=== PATIENT | male | born 1970 | race American Indian/Alaskan Native ===

== ENCOUNTER 2016-09-28 03:41 | Inpatient (IN) | payer MEDICAID ==
[~2016-09-28] VITALS: Ht 180.3 cm; Wt 74.9 kg
[2016-09-28 05:00] LABS: INR 0.93 (0.9-1.15); Partial Thromboplastin Time 25.1 sec (22.64-33.71); Prothrombin Time 10.1 sec (9.37-12.3)
[2016-09-28 05:03] LABS: Amylase 45 U/L (25-115); Anion Gap 12 (5-15); Aspartate Aminotransferase 13 U/L (15-37); BUN/Creatinine Ratio 8.9; Blood Urea Nitrogen 8 mg/dL (7-18); Calcium 8.3 mg/dL (8.5-10.1); Carbon Dioxide 25 mmol/L (21-32); Chloride 106 mmol/L (98-107); GFR African American 117 mL/min; GFR Non-African American 97 mL/min; Glucose 145 mg/dL (74-106); Potassium 3.7 mmol/L (3.5-5.1); Sodium 143 mmol/L (136-145)
[2016-09-28 05:07] LABS: Basophils # (auto) 0 uL; Basophils % (auto) 0.6 % (0.0-2.0); CONDITION Y; DEFINITIVE SEE PRINTOUT; Eosinophils # (auto) 0.1 uL; Eosinophils % (auto) 1.8 % (0.0-7.0); Hematocrit 27.2 % (41.0-53.0); Hemoglobin 8.7 g/dL (13.5-17.5); Lymphocytes # (auto) 1.5 uL; Mean Corpuscular Hemoglobin 22.6 pg (28.0-32.0); Mean Corpuscular Volume 70.8 fL (80.0-100.0); Mean Platelet Volume 8.2 fL (7.4-10.4); Monocytes # (auto) 0.6 uL; Monocytes % (auto) 8.1 % (0.0-12.0); Neutrophils # (auto) 4.6 uL; Neutrophils % (auto) 67.5 % (37.0-80.0); Platelet Count (auto) 567 10^3/uL (140-450); Red Cell Distribution Width 19.1 % (11.6-16.0); White Blood Cell 6.8 10^3/uL (4.4-10.8)
[2016-09-28 05:08] LABS: Alkaline Phosphatase 75 U/L (45-117); Bilirubin, Total 0.2 mg/dL (0.2-1.0); Total Protein 6.5 g/dL (6.4-8.2)
[2016-09-28] MEDS ORDERED: SODIUM CHLORIDE 0.9% 500 ML IVB ONE (08:16)
[2016-09-28] MEDS ORDERED: PANTOPRAZOLE SODIUM 40 MG/10 ML VIAL IV STA (08:16)
[2016-09-28] MEDS ORDERED: IOHEXOL 300 MG/ML 100ML BOTTLE IJ ONE (08:19)
[2016-09-28] MEDS ORDERED: MORPHINE SULFATE 4 MG/ML SYRG IV ONE (09:45)
[2016-09-28] MEDS ORDERED: ONDANSETRON HCL 4 MG/2 ML VIAL IV ONE (09:45)
[2016-09-28] MEDS ORDERED: EZ-GAS II GRANULES (RADIOLOGY USE) PO ONE (10:29)
[2016-09-28] MEDS ORDERED: GASTROGRAFIN 120 ML SOL ONE (10:29)
[2016-09-28] MEDS ORDERED: cefTRIAXone 1GM/50ML D5W 50 ML IV ONE (10:30)
[2016-09-28] MEDS ORDERED: MORPHINE SULF INJ 2 MG/ML SYRINGE 1ML IV PRN ×2 (10:30)
[2016-09-28] MEDS ORDERED: DEXTROSE (50%) 50ML SYRG IV PRN (10:30)
[2016-09-28] MEDS ORDERED: NITROGLYCERIN 0.4 MG SL TAB SL PRN (10:30)
[2016-09-28] MEDS ORDERED: PROMETHAZINE HCL 25 MG/ML 1ML IV PRN (10:30)
[2016-09-28] MEDS ORDERED: FAMOTIDINE (10MG/ML) 2ML VL IV SCH (10:30)
[2016-09-28] MEDS: SODIUM CHLORIDE 0.9% 1,000 ML IV SCH ×3 (12:13→23:43)
[2016-09-28] MEDS: ACCU-CHEK COMFORT CURVE STRIP VI SCH ×2 (12:13→17:39)
[2016-09-28] MEDS: metroNIDAZOLE 500MG/100ML 100 ML IV SCH ×2 (13:11→18:00)
[2016-09-28 14:50] VITALS: BP 126/74
[2016-09-28] MEDS ORDERED: IBUP800T24 PO (15:16)
[2016-09-28] MEDS ORDERED: CALC500C3 PO (15:17)
[2016-09-28 15:20] VITALS: BP 126/74
[2016-09-28 16:00] VITALS: BP 137/81
[2016-09-28] MEDS ORDERED: INFLUENZA QUAD 2016-2017 0.5 ML SYRG IM ONE (17:00)
[2016-09-28] MEDS ORDERED: PNEUMOCOCCAL VACC POLYS 25 MCG/0.5 ML VIAL IM ONE (17:00)
[2016-09-28] MEDS: PANTOPRAZOLE SODIUM 80 MG in SODIUM CHL 0.9% 60 ML IV SCH (19:00)
[2016-09-28 20:00] VITALS: BP 128/67
[2016-09-29] VITALS: BP 116/68
[2016-09-29 03:52] VITALS: BP 110/72
[2016-09-29] MEDS: PANTOPRAZOLE SODIUM 80 MG in SODIUM CHL 0.9% 60 ML IV SCH (05:00)
[2016-09-29] MEDS: ACCU-CHEK COMFORT CURVE STRIP VI SCH ×4 (05:34→17:45)
[2016-09-29] MEDS: metroNIDAZOLE 500MG/100ML 100 ML IV SCH ×2 (05:34)
[2016-09-29] MEDS: SODIUM CHLORIDE 0.9% 1,000 ML IV SCH ×2 (05:42→12:00)
[2016-09-29 05:51] LABS: Basophils # (auto) 0 uL; Basophils % (auto) 0.9 % (0.0-2.0); CONDITION Y; DEFINITIVE SEE PRINTOUT; Eosinophils # (auto) 0.1 uL; Eosinophils % (auto) 2.9 % (0.0-7.0); Hematocrit 25.7 % (41.0-53.0); Hemoglobin 8.5 g/dL (13.5-17.5); Lymphocytes # (auto) 1.5 uL; Lymphocytes % (auto) 32.6 % (10.0-50.0); Mean Corpuscular Hemoglobin 23.4 pg (28.0-32.0); Mean Corpuscular Volume 70.8 fL (80.0-100.0); Mean Platelet Volume 8.2 fL (7.4-10.4); Monocytes # (auto) 0.4 uL; Monocytes % (auto) 8.1 % (0.0-12.0); Neutrophils # (auto) 2.5 uL; Neutrophils % (auto) 55.5 % (37.0-80.0); Platelet Count (auto) 507 10^3/uL (140-450); Red Cell Distribution Width 18.6 % (11.6-16.0); White Blood Cell 4.6 10^3/uL (4.4-10.8)
[2016-09-29 06:03] LABS: Albumin 2.6 g/dL (3.4-5.0); BUN/Creatinine Ratio 6.8; Bilirubin, Total 0.2 mg/dL (0.2-1.0); Calcium 7.7 mg/dL (8.5-10.1); Total Protein 5.6 g/dL (6.4-8.2)
[2016-09-29 08:00] VITALS: BP 118/80
[2016-09-29] MEDS ORDERED: cefTRIAXone 1GM/50ML D5W 50 ML IV SCH (09:00)
[2016-09-29] MEDS ORDERED: LIDOCAINE VISCOUS 2% 15ML UD ONE (11:07)
[2016-09-29] MEDS ORDERED: SODIUM CHLORIDE LOCK 10 ML ONE (11:07)
[2016-09-29] MEDS ORDERED: diphenhdrAMINE HCL 50 MG/1 ML VL ONE (11:07)
[2016-09-29] MEDS: MIDAZOLAM HCL 5 MG/ML-1ML VIAL ONE ×2 (11:22→11:26)
[2016-09-29] MEDS: fentaNYL CITRATE 100 MCG/2 ML VL ONE ×2 (11:22→11:26)
[2016-09-29 12:13] VITALS: BP 128/74
[2016-09-29 16:00] VITALS: BP 119/70
[2016-09-29] MEDS: SUCRALFATE 1 GM/10 ML ORAL SUSP PO SCH (17:47)
[2016-09-29 20:00] VITALS: BP 133/61
[2016-09-29] MEDS: PANTOPRAZOLE 40 MG TAB PO SCH (21:18)
[2016-09-30] VITALS: BP 124/76
[2016-09-30 04:00] VITALS: BP 115/82
[2016-09-30 04:45] VITALS: BP 133/80
[2016-09-30] MEDS: ACCU-CHEK COMFORT CURVE STRIP VI SCH ×3 (06:28→12:20)
[2016-09-30 06:29] LABS: Basophils # (auto) 0 uL; Basophils % (auto) 1.1 % (0.0-2.0); CONDITION Y; DEFINITIVE SEE PRINTOUT; Eosinophils # (auto) 0.1 uL; Eosinophils % (auto) 3.4 % (0.0-7.0); Hematocrit 24.5 % (41.0-53.0); Hemoglobin 7.9 g/dL (13.5-17.5); Lymphocytes # (auto) 1.2 uL; Lymphocytes % (auto) 28.8 % (10.0-50.0); Mean Corpuscular Hemoglobin 22.6 pg (28.0-32.0); Mean Corpuscular Hgb Conc. 32.3 g/dL (32.0-36.0); Mean Corpuscular Volume 69.9 fL (80.0-100.0); Mean Platelet Volume 7.6 fL (7.4-10.4); Monocytes # (auto) 0.3 uL; Monocytes % (auto) 5.9 % (0.0-12.0); Neutrophils # (auto) 2.6 uL; Neutrophils % (auto) 60.8 % (37.0-80.0); Platelet Count (auto) 527 10^3/uL (140-450); Red Cell Distribution Width 18.7 % (11.6-16.0); White Blood Cell 4.2 10^3/uL (4.4-10.8)
[2016-09-30] MEDS: SUCRALFATE 1 GM/10 ML ORAL SUSP PO SCH ×2 (06:36→12:12)
[2016-09-30 09:00] VITALS: BP 145/88
[2016-09-30] MEDS: PANTOPRAZOLE 40 MG TAB PO SCH (10:15)
[2016-09-30] MEDS ORDERED: SODIUM CHLORIDE 0.9% 1,000 ML IV SCH (10:23)
[2016-09-30] MEDS ORDERED: PANT40T PO (14:19)
[2016-09-30] MEDS ORDERED: SUC1LQ PO (14:19)
[2016-09-30] MEDS ORDERED: FERR-7 PO (14:19)
[2016-09-30 15:45] VITALS: BP 145/88
[2016-09-30] MEDS ORDERED: INFLUENZA QUAD 2016-2017 0.5 ML SYRG IM ONE (16:30)
[2016-09-30] MEDS ORDERED: PNEUMOCOCCAL VACC POLYS 25 MCG/0.5 ML VIAL IM ONE (16:30)
== END 2016-09-30 17:00 | disposition home or self-care (01) | DRG 241 ==
LOC: ER 03:51 → TELE 03:52 → DOU IN ICU 14:56 → TELE-CENTR 09-30 04:40
PROVIDERS: ADMIT Internal Medicine; ATTEND Hospitalist
PROC: 0DB68ZX Excision of Stomach, Via Natural or Artificial Opening Endoscopic, Diagnostic (ICD-10-PCS; principal; 2016-09-29 11:20)
DX: K29.60 Other gastritis without bleeding (principal); K27.5 Chronic or unspecified peptic ulcer, site unspecified, with perforation; D62 Acute posthemorrhagic anemia; K26.9 Duodenal ulcer, unspecified as acute or chronic, without hemorrhage or perforation; K92.2 Gastrointestinal hemorrhage, unspecified; F17.210 Nicotine dependence, cigarettes, uncomplicated; F15.90 Other stimulant use, unspecified, uncomplicated; Z83.3 Family history of diabetes mellitus; Z71.89 Other specified counseling; Z23 Encounter for immunization
CPT/HCPCS: 36415; 43239; 71010; 74177; 74247; 80053; 82150; 82962; 83036; 83690; 84484; 85025; 85610; 85730; 86677; 86850; 86900; 86901; 87081; 93005; 94761; 96361; 96365; 96375; C9113; J0696; J2250; J2405; J3490